=== PATIENT | male | born 1940 | race Caucasian/White ===

== ENCOUNTER 2022-12-28 20:55 | Emergency (ER) | payer MEDICARE, BC ==
[2022-12-28 21:12] VITALS: RESP 18; TEMP 97.6
--- NOTE | 2022-12-28 21:24 | ED ---
Male Urogenital HPI - General Chief complaint: Urogenital Stated complaint: Post-Op Complications, Unable to Urinate Time Seen by Provider: 12/28/22 21:17 Source: patient Mode of arrival: ambulatory Limitations: no limitations - History of Present Illness Initial comments: This patient is an 82-year-old man who presents with complaint of having suprapubic discomfort and urge to urinate. He complains he has not been able to pass urine. His last urination was earlier in the afternoon just after he had hernia surgery here with Dr. Mancilla. Patient states she has been told he has some enlargement of the prostate but it had not required surgery previously. He follows with Dr. Mojica. No other associated symptoms. MD Complaint: other Onset/Timin -: hour(s) Location: abdomen Radiation: none Severity: moderate Quality: dull Consistency: constant Improves with: none Worsens with: none recent surgery Reports: urinary retention - Related Data Previous Rx's Medication Instructions Recorded oxyCODONE HCL [OxyIR] 5 mg PO Q6H PRN 3 Days #6 tab 12/28/22 Allergies Allergy/AdvReac Type Severity Reaction Status Date / Time No Known Allergies Allergy Verified 12/28/22 10:41 Review of Systems ROS Statement: Those systems with pertinent positive or pertinent negative responses have been documented in the HPI. ROS Other: All systems not noted in ROS Statement are negative. Constitutional: Denies: fever, chills Respiratory: Denies: dyspnea Cardiovascular: Denies: chest pain, palpitations Gastrointestinal: Reports: abdominal pain. Denies: nausea, vomiting, diarrhea, constipation Genitourinary: Reports: other (Retention). Denies: testicular pain, testicular mass Musculoskeletal: Denies: back pain Skin: Denies: rash Past Medical History Past Medical History: No Reported History, Prostate Disorder Additional Past Medical History / Comment(s): Current hernia right groin, pancreatitis/cholecystectomy, BPH History of Any Multi-Drug Resistant Organisms: None Reported Past Surgical History: Cholecystectomy Past Anesthesia/Blood Transfusion Reactions: No Reported Reaction Additional Past Anesthesia/Blood Transfusion Reaction / Comment(s): Pt has never had a blood transfusion. Past Psychological History: No Psychological Hx Reported Smoking Status: Former smoker Past Alcohol Use History: None Reported Past Drug Use History: None Reported - Past Family History Father Family Medical History: Coronary Artery Disease (CAD), Renal Disease Mother Family Medical History: No Reported History General Exam Limitations: no limitations General appearance: alert, in no apparent distress Respiratory exam: Present: normal lung sounds bilaterally. Absent: respiratory distress, wheezes, rales, rhonchi, stridor Cardiovascular Exam: Present: regular rate, normal rhythm, normal heart sounds. Absent: systolic murmur, diastolic murmur, rubs, gallop GI/Abdominal exam: Present: soft, tenderness (Mild suprapubic tenderness with some guarding over the bladder), guarding, other (The patient has intact surgical incision right inguinal area.). Absent: distended, rebound, rigid, pu lsatile mass, hernia Neurological exam: Present: alert Skin exam: Present: warm, dry, intact, normal color. Absent: rash Course Vital Signs 12/28/22 21:09 Temperature 97.6 F Pulse Rate 89 Respiratory 18 Rate Blood Pressure 209/102 O2 Sat by Pulse 99 Oximetry Medical Decision Making - Medical Decision Making this patient is an 82 -year-old man here with postoperative urinary retention. He is found to have over 700 and also of urine on bladder scan and therefore Mcgee catheter is placed without incident. The patient did have relief of all symptoms and was wanting to go home. Discussed risks and benefits of using Mcgee catheter for 24-48 hours and patient will go home with catheter in place. We discussed I was can be removed at home or if there is any difficulty or he is not able he can return here or follow with the urologist who he has a relationship. Was pt. sent in by a medical professional or institution (, PA, WAREHOUSE [employer]PERATIONS [employer]OCIATE, urgent care, hospital, or shelter...) When possible be specific @ -[No] Did you speak to anyone other than the patient for history (EMS, parent, family, police, friend...)? What history was obtained from this source @ -[No] Did you review nursing and triage notes (agree or disagree)? Why? @ -[I reviewed and agree with nursing and triage notes] Were old charts reviewed (outside hosp., previous admission, EMS record, old EKG, old radiological studies, urgent care reports/EKG's, shelter records)? Report findings @ -[No old charts were reviewed] Differential Diagnosis (chest pain, altered mental status, abdominal pain women, abdominal pain men, vaginal bleeding, weakness, fever, dyspnea, syncope, hea dache, dizziness, GI bleed, back pain, seizure, CVA, palpatations, mental health, musculoskeletal)? @ -[Differential diagnosis for urinary retention includes prostatic hypertrophy , prostate malignancy, postoperative urinary retention, amongst other conditions other EKG interpreted by me (3pts min.). @ -[ X-rays interpreted by me (1pt min.). @ -[None done] CT interpreted by me (1pt min.). @ -[None done] U/S interpreted by me (1pt. min.). @ -[None done] What testing was considered but not performed or refused? (CT, X-rays, U/S, labs)? Why? @ -[None] What meds were considered but not given or refused? Why? @ -[None] Did you discuss the management of the patient with other professionals (professionals i.e. , PA, WAREHOUSE [employer]PERATIONS ASSOCIATE, lab, RT, psych nurse, nephrology social worker, forging roll operator, teacher, agricultural technical officer, medical case worker)? Give summary @ -[No] Was smoking cessation discussed for >3mins.? @ -[No] Was critical care preformed (if so, how long)? @ -[No] Were there social determinants of health that impacted care today? How? (Homeles sness, low income, unemployed, alcoholism, drug addiction, transportation, low edu. Level, literacy, decrease access to med. care, long-term, rehab)? @ -[No] Was there de-escalation of care discussed even if they declined (Discuss DNR or withdrawal of care, Hospice)? DNR status @ -[No] What co-morbidities impacted this encounter? (DM, HTN, Smoking, COPD, CAD, Cancer, CVA, ARF, Chemo, Hep., AIDS, mental health diagnosis, sleep apnea, morbid obesity)? @ -[None] Was patient admitted / discharged? Hospital course, mention meds given and route, prescriptions, significant lab abnormalities, going to OR and other pertinent info. @ -[discharged Undiagnosed new problem with uncertain prognosis? @ -[No] Drug Therapy requiring intensive monitoring for toxicity (Heparin, Nitro, Insulin, Cardizem)? @ -[No] Were any procedures done? @ -[No] Diagnosis/symptom? @ -[acute urinary retention, uncomplicated Acute, or Chronic, or Acute on Chronic? @ -[default] Uncomplicated (without systemic symptoms) or Complicated (systemic symptoms)? @ -[default] Side effects of treatment? @ -[No] Exacerbation, Progression, or Severe Exacerbation? @ -[No] Poses a threat to life or bodily function? How? (Chest pain, [place], [place], pneumonia, PE, COPD, DKA, ARF, appy, cholecystitis, CVA, Diverticulitis, Homicidal, Suicidal, threat to staff... and all critical care pts) @ -[No] Disposition Clinical Impression: Postoperative urinary retention Disposition: HOME SELF-CARE Condition: Good Instructions (If sedation given, give patient instructions): Urinary Retention in Men (ED) Is patient prescribed a controlled substance at d/c from ED?: No Referrals: Tejas Anderson MD [Primary Care Provider] - 1-2 days Rai Mojica MD [STAFF PHYSICIAN] - 1-2 days
[2022-12-28 23:49] VITALS: BP 154/90; PULSE 74
== END 2022-12-28 23:47 | disposition home or self-care (01) ==
LOC: EC 20:55
DX: R33.9 Retention of urine, unspecified (principal); Z87.891 Personal history of nicotine dependence; Z90.49 Acquired absence of other specified parts of digestive tract
CPT/HCPCS: 51702; 51798; 99283